=== PATIENT | male | born 1945 | race Caucasian/White ===

== ENCOUNTER → 2024-02-18 | Outpatient (CLI) | payer OTHER ==
[~2024-02-18] MED LIST: IOHEXOL-350 50ML VIAL IV ONE
--- NOTE | 2024-02-18 10:12 | HMCIMG ---
CT CARDIAC ANGIO W/CONT. CCTA REASON: SOB COMPARISON: None TECHNIQUE: Images are obtained through the heart in the axial plane before and during bolus IV contrast infusion, 100 cc Omnipaque 350. 2-D and 3-D multiplanar reconstruction images were then performed. The injection had to be repeated once due to motion artifact on the first sequence, total contrast volume was 200 cc. FINDINGS: This dictation is for the noncardiac findings only. Cardiac and coronary artery findings are reported separately. Visualized portions of the lungs are clear. There is normal-appearing pulmonary interstitium. There is no hilar or mediastinal lymphadenopathy. Chest wall structures appear unremarkable. IMPRESSION: 1. Unremarkable noncardiac portions of CT cardiac angiography.
--- NOTE | 2024-02-19 20:27 | CARDIOLOGY ---
RAD REPORT: [facility] CT ANGIO RADIOLOGY REPORT: CORONARY CT ANGIOGRAPHY DATE: Feb 19, 2024 QUALITY: Excellent CLINICAL HISTORY AND INDICATION: [coronary artery bypass graft patency] TECHNIQUE: After obtaining a preliminary legal file clerk image, contrast imaging performed on an [employer] [id number] scanner. A dedicated, limited window, coronary imaging protocol was used, with single breath-hold, retrospective ECG gating, and automated arrhythmia rejection. 100 cc of low osmolar contrast agent: Omnipaque 350 was delivered via a 18-gauge IV catheter in the right antecubital fossa, using a power injector and followed by 60 cc of normal saline bolus as a chaser. Collimated images were reformatted at 0.5 mm intervals, and sent to an offline independent workstation for interpretation, using 3D anatomic reconstructions: Curved multiplanar reconstructions, maximum intensity projections, and multiplanar imaging. No metoprolol was administered prior to scanning due to low baseline heart rate. 0.4 mg SL nitroglycerin was given. CORONARY ARTERY DESCRIPTIONS: The coronary arteries arise in normal position. Left main coronary artery: Normal caliber vessel that bifurcates into the LAD and LCx. Severe diffuse left main disease. Left anterior descending coronary artery: Normal caliber vessel and gives rise to diagonal and septal branches. Severe proximal to mid LAD stenosis. Left circumflex coronary artery: Normal caliber, dominant and gives rise to a large OM branch. Heavily calcified proximal to mid LCx. Right coronary artery: Small, non-dominant vessel. There is calcified plaque in the ostial/proximal RCA with 20-30% stenosis There is calcified plaque in the mid RCA with 20-30% stenosis. CORONARY ARTERY BYPASS GRAFT DESCRIPTIONS: Patent DONAHUE to LAD Patent SVG to Diagonal 2. Patent SVG to OM 1. Thoracic Aorta: Normal diameter. Daysi Whaley MD Cardiovascular Disease [facility] DAYSI WHALEY MD Feb 19, 2024 20:27
== END | disposition home or self-care (01) ==
LOC: RAH 07:05
PROVIDERS: ATTEND Internal Medicine Cardiovascular Disease
DX: R06.02 Shortness of breath (principal); Z95.1 Presence of aortocoronary bypass graft; I25.10 Atherosclerotic heart disease of native coronary artery without angina pectoris
CPT/HCPCS: 75574; Q9967